=== PATIENT | male | born 1990 | race Two or more races ===

== ENCOUNTER 2022-11-28 23:59 | Emergency (ER) | payer OTHER ==
[~2022-11-28] VITALS: Ht 175.3 cm; Wt 81.8 kg
[2022-11-29 00:25] VITALS: TEMP 98.8
[2022-11-29 00:26] VITALS: BP 135/62; PULSE 75; RESP 16
[2022-11-29] MEDS ORDERED: SULFAMETHOX/TRIMETH DS 800-160 MG/TABLET PO ONE (00:45)
== END 2022-11-29 01:20 | disposition home or self-care (01) ==
LOC: EMS 23:59
DX: S31.22XA Laceration with foreign body of penis, initial encounter (principal); I10 Essential (primary) hypertension; F15.90 Other stimulant use, unspecified, uncomplicated; W45.8XXA Other foreign body or object entering through skin, initial encounter; Y93.89 Activity, other specified; Y92.89 Other specified places as the place of occurrence of the external cause; Y99.8 Other external cause status
CPT/HCPCS: 12001; 99283